=== PATIENT | female | born 1955 | race African-American/Black ===

== ENCOUNTER 2022-03-03 09:12 | Inpatient (IN) | payer MEDICARE, OTHER ==
[~2022-03-03] VITALS: Ht 160 cm; Wt 100.1 kg
[2022-03-03] MEDS ORDERED: dilTIAZem 25 MG/5 ML VIAL IV ONE ×2 (09:42→09:45)
[2022-03-03] MEDS ORDERED: DIGOXIN (250MCG/ML) 2 ML AMPULE IV ONE ×2 (10:00→12:00)
[2022-03-03] MEDS ORDERED: ETOMIDATE (2MG/ML) 20ML VIAL IV ONE (10:00)
[2022-03-03 10:31] LABS: Basophils # (auto) 0 10 ^3/uL (0-0.2); Basophils % (auto) 0.3 % (0.0-2.0); Lymphocytes # (auto) 1.7 10 ^3/uL (0.4-5.4); Mean Corpuscular Volume 78.9 fL (80.0-100.0); Monocytes # (auto) 0.8 10 ^3/uL (0-1.3); Nucleated Red Blood Cells % 0.3 %; Red Cell Distribution Width 17.7 % (11.8-14.3)
[2022-03-03 10:33] LABS: Eosinophils # (auto) 0.1 10 ^3/uL (0-0.8); Eosinophils % (auto) 0.9 % (0.0-7.0); Hematocrit 36.8 % (36.0-46.0); Hemoglobin 10.9 g/dL (12.2-16.2); Lymphocytes % (auto) 13.8 % (10.0-50.0); Mean Corpuscular Hemoglobin 23.5 pg (28.0-32.0); Mean Corpuscular Hgb Conc. 29.7 g/dL (32.0-36.0); Monocytes % (auto) 6.5 % (0.0-12.0); Neutrophils # (auto) 9.7 10 ^3/uL (1.6-8.6); Neutrophils % (auto) 78.5 % (37.0-80.0); Red Blood Cells 4.66 10^6/uL (4.0-5.20); White Blood Cell 12.3 10^3/uL (4.4-10.8)
[2022-03-03 10:56] LABS: INR 1.08 (0.9-1.15); Partial Thromboplastin Time 26.4 sec (24.6-33.4)
[2022-03-03 11:26] LABS: Alanine Aminotransferase 17 U/L (13-56); Alkaline Phosphatase 55 U/L (45-117); Anion Gap 14 (5-15); Aspartate Aminotransferase 27 U/L (15-37); BUN/Creatinine Ratio 6.8; Bilirubin, Total 0.9 mg/dL (0.2-1.0); Blood Urea Nitrogen 7 mg/dL (7-18); Calcium 8.8 mg/dL (8.5-10.1); Carbon Dioxide 18 mmol/L (21-32); Chloride 113 mmol/L (98-107); GFR African American 69 mL/min; GFR Non-African American 57 mL/min; Glucose 147 mg/dL (74-106); Potassium 3.3 mmol/L (3.5-5.1); Sodium 145 mmol/L (136-145); Total Protein 7.4 g/dL (6.4-8.2)
[2022-03-03 11:27] LABS: Albumin 2.9 g/dL (3.4-5.0); Magnesium 1.9 mg/dL (1.6-2.6)
[2022-03-03] MEDS ORDERED: ASPirin 81 mg TAB PO ONE (11:30)
[2022-03-03] MEDS ORDERED: POTASSIUM EFFERVESENT TAB 25 MEQ PO ONE ×2 (12:00→13:00)
[2022-03-03] MEDS ORDERED: MAGNESIUM SULFATE 1GM/100ML 100 ML IV ONE (12:00)
[2022-03-03] MEDS ORDERED: ACETAMINOPHEN 325 MG TAB PO PRN (12:45)
[2022-03-03] MEDS ORDERED: ONDANSETRON HCL 4 MG/2 ML VIAL IV PRN (12:45)
[2022-03-03] MEDS ORDERED: PANTOPRAZOLE 40 MG/10 ML VIAL INJ IV ONE (13:00)
[2022-03-03] MEDS ORDERED: ENOXAPARIN SOD 100 MG/1 ML SYRINGE SC ONE (13:00)
[2022-03-03] MEDS ORDERED: NITROGLYCERIN 0.4 MG SL TAB SL PRN (13:00)
[2022-03-03] MEDS ORDERED: MORPHINE SULFATE INJ 2 MG/ml SYRG IV PRN (13:00)
[2022-03-03 13:14] LABS: Cholesterol 123 mg/dL (< 200); LDL Cholesterol 83 mg/dL (< 100); Triglycerides 107 mg/dL (< 150)
[2022-03-03] MEDS ORDERED: AZITHROMYCIN 500MG/ 250ML 250 ML IV ONE (13:15)
[2022-03-03] MEDS ORDERED: FUROSEMIDE 20 MG/2 ML VIAL IV ONE (13:15)
[2022-03-03] MEDS ORDERED: cefTRIAXone 1GM/50ML D5W 50 ML IV ONE (13:15)
[2022-03-03 13:17] LABS: HDL Cholesterol 36 mg/dL (40-59)
[2022-03-03] MEDS ORDERED: IOHEXOL 350 MG/ML 100ML IJ ONE (13:40)
[2022-03-03] MEDS ORDERED: DEXTROSE (50%) 50ML SYRG IV PRN (13:45)
[2022-03-03 13:59] VITALS: BP 124/70
[2022-03-03] MEDS ORDERED: AMIODARONE HCL 200 MG TAB PO ONE (15:00)
[2022-03-03] MEDS: InsuLIN REG 1unit/0.01ml Soln (100units/ml) SC SCH ×2 (18:01→22:47)
[2022-03-03] MEDS: ACCU-CHEK COMFORT CURVE STRIP VI SCH ×2 (18:01→22:47)
[2022-03-03 18:51] LABS: Urine Bacteria FEW /hpf (None Seen); Urine Blood 1+ /uL (Negative); Urine Hyaline Cast FEW /lpf (0 - 2); Urine Specific Gravity 1.015 (1.001-1.035); Urine WBC 32 /hpf (0 - 5)
[2022-03-03] MEDS ORDERED: LORazepam 2MG/ML-1ML VIAL IV PRN ×2 (19:15)
[2022-03-03 22:00] VITALS: BP 141/70
[2022-03-03] MEDS ORDERED: ENOXAPARIN SOD 100 MG/1 ML SYRINGE SC SCH (22:00)
[2022-03-03] MEDS: ALBUTEROL SULF 2.5 MG/0.5ML(0.5%) NEB SOLN NEB PRN (22:00)
[2022-03-03] MEDS: AMIODARONE HCL 200 MG TAB PO SCH (22:56)
[2022-03-03] MEDS: ENOXAPARIN SOD 40 MG/0.4 ML SYRINGE SC SCH (22:56)
[2022-03-03] MEDS: ATORVASTATIN 20 MG TAB PO SCH (22:56)
[2022-03-03] MEDS: METOPROLOL TARTRATE 25 MG TAB PO SCH (22:59)
[2022-03-04 06:02] LABS: Albumin 2.7 g/dL (3.4-5.0); BUN/Creatinine Ratio 8.5; Calcium 8.5 mg/dL (8.5-10.1)
[2022-03-04 06:05] LABS: Bilirubin, Total 0.8 mg/dL (0.2-1.0); Total Protein 6.6 g/dL (6.4-8.2)
[2022-03-04 06:24] LABS: Basophils # (auto) 0.1 10 ^3/uL (0-0.2); Basophils % (auto) 0.6 % (0.0-2.0); Eosinophils # (auto) 0.3 10 ^3/uL (0-0.8); Hematocrit 28.9 % (36.0-46.0); Lymphocytes # (auto) 1.4 10 ^3/uL (0.4-5.4); Lymphocytes % (auto) 15.5 % (10.0-50.0); Mean Corpuscular Hemoglobin 24.1 pg (28.0-32.0); Mean Corpuscular Hgb Conc. 31.3 g/dL (32.0-36.0); Monocytes # (auto) 1.1 10 ^3/uL (0-1.3); Monocytes % (auto) 12.2 % (0.0-12.0); Neutrophils # (auto) 6.1 10 ^3/uL (1.6-8.6); Neutrophils % (auto) 68.7 % (37.0-80.0); Nucleated Red Blood Cells % 0.3 %; Red Blood Cells 3.76 10^6/uL (4.0-5.20); Red Cell Distribution Width 17.5 % (11.8-14.3); White Blood Cell 8.9 10^3/uL (4.4-10.8)
[2022-03-04] MEDS: ACCU-CHEK COMFORT CURVE STRIP VI SCH ×3 (07:51→18:16)
[2022-03-04] MEDS: InsuLIN REG 1unit/0.01ml Soln (100units/ml) SC SCH ×4 (07:52→22:00)
[2022-03-04] MEDS: cefTRIAXone 1GM/50ML D5W 50 ML IV SCH (08:53)
[2022-03-04 10:30] LABS: Amphetamine Screen, Urine NEGATIVE (NEGATIVE); Barbiturate Scree,Urine NEGATIVE (NEGATIVE); Benzodiazephine Screen, Urine NEGATIVE (NEGATIVE); Cannabinoid Screen, Urine NEGATIVE (NEGATIVE); Cocaine Screen, Urine NEGATIVE (NEGATIVE); Opiate Scree,Urine NEGATIVE (NEGATIVE); Phencyclidine Screen, Urine NEGATIVE (NEGATIVE)
[2022-03-04] MEDS: AMIODARONE HCL 200 MG TAB PO SCH ×2 (11:23→23:58)
[2022-03-04] MEDS: ASPirin 81 mg TAB PO SCH (11:23)
[2022-03-04] MEDS: ENOXAPARIN SOD 40 MG/0.4 ML SYRINGE SC SCH ×2 (11:24→23:59)
[2022-03-04] MEDS: METOPROLOL TARTRATE 25 MG TAB PO SCH ×2 (11:24→23:59)
[2022-03-04] MEDS: PANTOPRAZOLE 40 MG/10 ML VIAL INJ IV SCH (11:24)
[2022-03-04] MEDS: AZITHROMYCIN 500MG/ 250ML 250 ML IV SCH (11:25)
[2022-03-04 22:26] VITALS: BP 141/70
[2022-03-04] MEDS ORDERED: HYDR12.56 PO (22:56)
[2022-03-04] MEDS ORDERED: LISI40TA11 PO (22:56)
[2022-03-04] MEDS ORDERED: [UNRECOGNIZED DRUG - CODE] PO (22:56)
[2022-03-04] MEDS ORDERED: PRE1T PO (22:56)
[2022-03-04] MEDS: ATORVASTATIN 20 MG TAB PO SCH (23:58)
[2022-03-05] MEDS: ACCU-CHEK COMFORT CURVE STRIP VI SCH ×5 (00:14→22:00)
[2022-03-05 05:00] VITALS: BP 104/52
[2022-03-05 06:37] LABS: Basophils # (auto) 0.1 10 ^3/uL (0-0.2); Eosinophils # (auto) 0.3 10 ^3/uL (0-0.8); Hemoglobin 8.9 g/dL (12.2-16.2); Lymphocytes # (auto) 1.4 10 ^3/uL (0.4-5.4); Mean Corpuscular Hemoglobin 23.9 pg (28.0-32.0); Monocytes # (auto) 0.9 10 ^3/uL (0-1.3); Neutrophils # (auto) 5.2 10 ^3/uL (1.6-8.6); White Blood Cell 7.9 10^3/uL (4.4-10.8)
[2022-03-05 06:39] LABS: Eosinophils % (auto) 3.8 % (0.0-7.0); Hematocrit 28.7 % (36.0-46.0); Lymphocytes % (auto) 17.2 % (10.0-50.0); Mean Corpuscular Hgb Conc. 30.9 g/dL (32.0-36.0); Mean Corpuscular Volume 77.2 fL (80.0-100.0); Monocytes % (auto) 11.7 % (0.0-12.0); Neutrophils % (auto) 66.3 % (37.0-80.0); Nucleated Red Blood Cells % 0.2 %; Red Blood Cells 3.71 10^6/uL (4.0-5.20); Red Cell Distribution Width 16.7 % (11.8-14.3)
[2022-03-05] MEDS: InsuLIN REG 1unit/0.01ml Soln (100units/ml) SC SCH ×4 (06:40→21:46)
[2022-03-05 06:51] LABS: Calcium 8.4 mg/dL (8.5-10.1); Potassium 3.7 mmol/L (3.5-5.1)
[2022-03-05 06:53] LABS: BUN/Creatinine Ratio 8.7
[2022-03-05 09:00] VITALS: BP 117/54
[2022-03-05] MEDS: AZITHROMYCIN 500MG/ 250ML 250 ML IV SCH ×2 (09:17→11:13)
[2022-03-05] MEDS: cefTRIAXone 1GM/50ML D5W 50 ML IV SCH (09:17)
[2022-03-05] MEDS: ENOXAPARIN SOD 40 MG/0.4 ML SYRINGE SC SCH ×2 (09:17→21:59)
[2022-03-05] MEDS: AMIODARONE HCL 200 MG TAB PO SCH ×2 (09:18→21:58)
[2022-03-05] MEDS: ASPirin 81 mg TAB PO SCH (09:18)
[2022-03-05] MEDS: PANTOPRAZOLE 40 MG/10 ML VIAL INJ IV SCH (09:18)
[2022-03-05] MEDS: METOPROLOL TARTRATE 25 MG TAB PO SCH ×2 (09:19→21:59)
[2022-03-05] MEDS ORDERED: SODIUM CHLORIDE 0.9 % NEB SOLN 3ML NEB ONE (12:14)
[2022-03-05] MEDS: ALBUTEROL SULF 2.5 MG/0.5ML(0.5%) NEB SOLN NEB PRN (12:21)
[2022-03-05 13:00] VITALS: BP 122/54
[2022-03-05 16:54] VITALS: BP 137/70
[2022-03-05] MEDS: ATORVASTATIN 20 MG TAB PO SCH (21:58)
[2022-03-05 23:09] VITALS: BP 142/67
[2022-03-06] MEDS: ALBUTEROL SULF 2.5 MG/0.5ML(0.5%) NEB SOLN NEB PRN (00:30)
[2022-03-06] MEDS: InsuLIN REG 1unit/0.01ml Soln (100units/ml) SC SCH ×3 (06:02→17:00)
[2022-03-06] MEDS: FUROSEMIDE 40 MG/4 ML VIAL IV SCH ×2 (06:21→10:00)
[2022-03-06] MEDS: ACCU-CHEK COMFORT CURVE STRIP VI SCH ×3 (06:22→17:06)
[2022-03-06 06:25] VITALS: BP 142/69
[2022-03-06 06:49] LABS: Red Cell Distribution Width 17.1 % (11.8-14.3)
[2022-03-06 06:52] LABS: Basophils # (auto) 0 10 ^3/uL (0-0.2); Basophils % (auto) 0.4 % (0.0-2.0); Eosinophils # (auto) 0.2 10 ^3/uL (0-0.8); Eosinophils % (auto) 3.5 % (0.0-7.0); Hematocrit 28.7 % (36.0-46.0); Hemoglobin 8.7 g/dL (12.2-16.2); Lymphocytes # (auto) 1.5 10 ^3/uL (0.4-5.4); Lymphocytes % (auto) 22.7 % (10.0-50.0); Mean Corpuscular Hemoglobin 23.2 pg (28.0-32.0); Mean Corpuscular Hgb Conc. 30.3 g/dL (32.0-36.0); Mean Corpuscular Volume 76.7 fL (80.0-100.0); Monocytes # (auto) 0.9 10 ^3/uL (0-1.3); Neutrophils # (auto) 4.1 10 ^3/uL (1.6-8.6); Neutrophils % (auto) 60.4 % (37.0-80.0); Nucleated Red Blood Cells % 0.2 %; Red Blood Cells 3.74 10^6/uL (4.0-5.20); White Blood Cell 6.8 10^3/uL (4.4-10.8)
[2022-03-06 07:00] LABS: BUN/Creatinine Ratio 7.4; Calcium 8.6 mg/dL (8.5-10.1); Potassium 3.6 mmol/L (3.5-5.1)
[2022-03-06 09:00] VITALS: BP 142/72
[2022-03-06 09:29] VITALS: BP 142/69
[2022-03-06] MEDS: AMIODARONE HCL 200 MG TAB PO SCH (09:58)
[2022-03-06] MEDS: ASPirin 81 mg TAB PO SCH (09:59)
[2022-03-06] MEDS: METOPROLOL TARTRATE 25 MG TAB PO SCH (10:00)
[2022-03-06] MEDS: ENOXAPARIN SOD 40 MG/0.4 ML SYRINGE SC SCH (10:00)
[2022-03-06] MEDS: cefTRIAXone 1GM/50ML D5W 50 ML IV SCH (10:01)
[2022-03-06] MEDS ORDERED: ASPI-325 PO (10:17)
[2022-03-06] MEDS ORDERED: FURO1TAB33 PO (10:17)
[2022-03-06] MEDS ORDERED: AMOX500T86 PO (10:17)
[2022-03-06] MEDS ORDERED: AMIO200T33 PO (10:17)
[2022-03-06] MEDS ORDERED: MET25T PO (10:17)
[2022-03-06] MEDS ORDERED: AZITHROMYCIN 500MG/ 250ML 250 ML IV SCH (12:19)
[2022-03-06 13:00] VITALS: BP 114/64
[2022-03-06 15:20] VITALS: BP 116/66
[2022-03-06 17:00] VITALS: BP 124/59
== END 2022-03-06 20:10 | disposition home or self-care (01) | DRG 280 ==
LOC: EDBD 09:12 → ER 09:12 → TELE 12:48 → TELE-EAST 03-04 22:07
PROVIDERS: ADMIT Nurse Practitioner Family; ATTEND Internal Medicine Pulmonary Disease
DX: I11.0 Hypertensive heart disease with heart failure (principal); I21.A1 Myocardial infarction type 2; I50.41 Acute combined systolic (congestive) and diastolic (congestive) heart failure; J18.9 Pneumonia, unspecified organism; N39.0 Urinary tract infection, site not specified; E66.01 Morbid (severe) obesity due to excess calories; I42.9 Cardiomyopathy, unspecified; I48.0 Paroxysmal atrial fibrillation; R56.9 Unspecified convulsions; Z20.822 Contact with and (suspected) exposure to COVID-19; E11.65 Type 2 diabetes mellitus with hyperglycemia; D50.9 Iron deficiency anemia, unspecified; E87.6 Hypokalemia; F17.200 Nicotine dependence, unspecified, uncomplicated; J45.909 Unspecified asthma, uncomplicated; Z79.82 Long term (current) use of aspirin; Z79.899 Other long term (current) drug therapy; Z86.73 Personal history of transient ischemic attack (TIA), and cerebral infarction without residual deficits; Z90.710 Acquired absence of both cervix and uterus; Z68.39 Body mass index [BMI] 39.0-39.9, adult
CPT/HCPCS: 36415; 70450; 70551; 71045; 71275; 80048; 80053; 80061; 80307; 81001; 82962; 83036; 83735; 83880; 84439; 84443; 84484; 85025; 85379; 85610; 85730; 87040; 87081; 87426; 93005; 93306; 93886; 93970; 94640; 95819; 96365; 96375; 99291; C9113; G0378; J0696